=== PATIENT | male | born 1980 | race Caucasian/White ===

== ENCOUNTER 2025-06-02 00:41 | Emergency (ER) | payer OTHER, SELFPAY ==
[2025-06-02 00:45] VITALS: BP 168/92; PULSE 82; O2SAT 98; BMI 26.3
[2025-06-02 00:53] VITALS: BP 152/79; O2SAT 99
[2025-06-02 01:00] VITALS: BP 142/86; O2SAT 100
[2025-06-02 01:09] LABS: Hematocrit 43.3 % (42.0-54.0); Hemoglobin 14.9 g/dL (14.0-18.0); Immature Granulocytes Abs Auto 0.01 10^3/uL (0.00-0.03); Immature Granulocytes Pct Auto 0.2 % (0.0-0.5); Lymphocytes Absolute Auto 3.0 10^3/uL (1.2-3.8); Mean Corpuscular HGB Conc 34.4 g/dL (29.9-35.2); Mean Corpuscular Hemoglobin 27.9 pg (25.9-34.0); Mean Corpuscular Volume 81.1 fL (80.0-94.0); Platelet Count 193 10^3/uL (150-450); Red Blood Count 5.34 10^6/uL (4.70-6.10); White Blood Count 6.0 10^3/uL (4.0-11.0)
--- NOTE | 2025-06-02 01:17 | ED.GENADUL1 ---
HPI HPI - General Adult General Chief complaint: Abdominal Pain Stated complaint: Abdominal pain Time Seen by Provider: 06/02/25 01:01 Source: patient Mode of arrival: walk-in Limitations: no limitations History of Present Illness HPI narrative: Patient is a 45-year-old male presenting to the emergency department for evaluation of abdominal pain. Patient states that a few hours ago he started experiencing right lower abdominal pain that radiates to his right flank. He states that the pain comes in waves, and is currently subsiding. He states he has a history of prior kidney stones. States he had an ultrasound of his gallbladder in the past which was negative for gallstones. He denies any associated nausea or vomiting. He has no dysuria or hematuria. No constipation or diarrhea. No chest pain or shortness of breath. No fevers or chills. Denies history of intra-abdominal surgeries. He is otherwise healthy with no chronic medical conditions. Related Data Allergies Allergy/AdvReac Type Severity Reaction Status Date / Time No Known Drug Allergies Allergy Verified 06/02/25 00:45 Opioid HPI Opioid Management Most Recent Opioid Data: Last Pain Scale 7 Today, 01:20 Last AUG Pain Assessment Today, 01:20 Review of Systems ROS Status of ROS 10 or more systems reviewed and unremarkable except as noted in history and below PFSH PFSH Social History Little interest or pleasure in doing things: not at all Feeling down, depressed, or hopeless: not at all Exam Narrative Exam Narrative: CONSTITUTIONAL: Well-appearing, answering questions and following commands appropriately SKIN: Was warm and dry. EYES: Sclerae white. EARS, NOSE, THROAT: Moist oral mucosa. RESPIRATORY: Clear to auscultation bilaterally, no wheezes, crackles, or stridor, no use of accessory muscles CARDIOVASCULAR: Normal rate and regular rhythm. There is no S3, S4, murmur, rub. GASTROINTESTINAL: Abdomen soft, nontender, nondistended. No right upper quadrant tenderness. No rebound tenderness or guarding. MUSCULOSKELETAL: No peripheral edema. NEUROLOGIC: Patient is awake and alert. Facies were symmetrical. Constitutional Vital Signs, click to edit/add: Last Vital Signs Pulse 82 06/02/25 00:45 Resp 19 06/02/25 00:45 BP 142/86 H 06/02/25 01:00 Pulse Ox 100 06/02/25 01:00 O2 Del Method Room Air 06/02/25 00:45 Course Vital Signs Vital signs: Vital Signs Pulse Rate 82 06/02/25 00:45 Respiratory Rate 19 06/02/25 00:45 Blood Pressure 168/92 H 06/02/25 00:45 Pulse Oximetry 98 06/02/25 00:45 Oxygen Delivery Method Room Air 06/02/25 00:45 Pulse Rate 82 06/02/25 00:45 Respiratory Rate 19 06/02/25 00:45 Blood Pressure 142/86 H 06/02/25 01:00 Pulse Oximetry 100 06/02/25 01:00 Oxygen Delivery Method Room Air 06/02/25 00:45 Medical Decision Making MDM Narrative Medical decision making narrative: My clinical impression is that the patient's symptoms are secondary to nephrolithiasis. Though this pain is in the right lower quadrant, he has no tenderness to palpation to suggest appendicitis. No urinary symptoms to suggest cystitis/pyelonephritis. IV was established and laboratory studies were obtained. CT abdomen/pelvis was ordered. He was given IV ketorolac for pain. Laboratory studies were unremarkable. No significant electrolyte or metabolic derangement. No evidence of acute kidney injury. No anemia, leukocytosis, or thrombocytopenia. No transaminitis or hyperbilirubinemia. Lipase not elevated. Urinalysis positive for hematuria, no acute infection. CT abdomen/pelvis independently reviewed and interpreted by myself demonstrated right 4 mm nonobstructing distal ureteral lithiasis near the UVJ. I do believe the patient is stable for discharge. Patient has no evidence of infection, sepsis, or obstructive uropathy. His pain is under control and is tolerating p.o. They were instructed to follow up with PCP for further care. Return precautions were given including any new or worsening symptoms. Patient understands and agrees to the plan. FINAL IMPRESSION: #Acute right-sided ureterolithiasis DISPOSITION: Discharged home CONDITION: Good Lab Data Lab results reviewed: Yes I reviewed the patient's lab results Labs: Lab Results 06/02/25 06/02/25 Range/Units 01:00 01:25 WBC 6.0 (4.0-11.0) 10^3/uL RBC 5.34 (4.70-6.10) 10^6/uL Hgb 14.9 (14.0-18.0) g/dL Hct 43.3 (42.0-54.0) % MCV 81.1 (80.0-94.0) fL MCH 27.9 (25.9-34.0) pg MCHC 34.4 (29.9-35.2) g/dL RDW 13.0 (11.0-15.0) % Plt Count 193 (150-450) 10^3/uL MPV 8.4 L (9.5-13.5) fL Neut % (Auto) 41.5 L (43.0-75.0) % Lymph % (Auto) 49.9 (20.5-60.0) % [place] % (Auto) 5.9 (1.7-12.0) % Eos % (Auto) 2.0 (0.9-7.0) % Baso % (Auto) 0.5 (0.2-2.0) % Neut # (Auto) 2.5 (1.4-6.5) 10^3/uL Lymph # (Auto) 3.0 (1.2-3.8) 10^3/uL [place] # (Auto) 0.4 (0.3-0.8) 10^3/uL Eos # (Auto) 0.1 (0.0-0.7) 10^3/uL Baso # (Auto) 0.0 (0.0-0.1) 10^3/uL Abs Immat Gran (auto) 0.01 (0.00-0.03) 10^3/uL Imm/Tot Granulo (auto) 0.2 (0.0-0.5) % Sodium 146 H (136-145) mmol/L Potassium 3.6 (3.5-5.1) mmol/L Chloride 108 H (98-107) mmol/L Carbon Dioxide 30.3 (21.0-32.0) mmol/L Anion Gap 11.3 BUN 19.0 H (7.0-18.0) mg/dL Creatinine 1.24 (0.70-1.30) mg/dL Est GFR ( Amer) >60 (>=60 mL/min/1.73m^2) Est GFR (Non-Af Amer) >60 (>=60 mL/min/1.73m^2) BUN/Creatinine Ratio 15.3 Glucose 109 H (74-106) mg/dL Calcium 8.4 L (8.5-10.1) mg/dL Total Bilirubin 0.3 (0.2-1.0) mg/dL AST 30 (15-37) U/L ALT 60 (16-63) U/L Alkaline Phosphatase 88 (46-116) U/L Total Protein 7.0 (6.4-8.2) g/dL Albumin 3.7 (3.4-5.0) g/dL Globulin 3.3 g/dL Albumin/Globulin Ratio 1.1 Lipase 57.0 (16.0-77.0) U/L Urine Color Yellow (YELLOW) Urine Clarity Clear (CLEAR) Urine pH 6.5 (5.0-9.0) Ur Specific [place] 1.020 (1.005-1.025) Urine Protein Negative (NEG/TRACE) mg/dL Urine Glucose (UA) Negative (NEGATIVE) mg/dL Urine Ketones Negative (NEGATIVE) mg/dL Urine Occult Blood Large A (NEGATIVE) Urine Nitrite Negative (NEGATIVE) Urine Bilirubin Negative (NEGATIVE) Urine Urobilinogen 1.0 (0.2-1.0) EU/dL Ur Leukocyte Esterase Negative (NEGATIVE) Urine RBC 50-75 A (0-2) #/HPF Urine WBC None seen (NONE SEEN) #/HPF Ur Squamous Epith Cells None seen (NONE/RARE) #/LPF Urine Crystals None seen (None Seen) #/HPF Urine Bacteria None seen (NONE SEEN) #/HPF Urine Casts None seen (NONE SEEN) #/LPF Urine Mucus None seen (NONE SEEN) Ur Culture Indicated? No Imaging Data CT scan - abdomen: Attestation: I personally reviewed and interpreted this imaging study as follows: Discharge Plan Discharge Chief Complaint: Abdominal Pain Clinical Impression: Kidney stone on right side Patient Disposition: Home, Self-Care Time of Disposition Decision: 01:48 Condition: Good Mode of Transportation: Private Vehicle Print Language: Maori Instructions: Kidney Stones (ED) Referrals: JESSICA DAWN [Primary Care Provider, Internal Medicine] - 1 week
[2025-06-02] MEDS: KETOROLAC TROMETHAMINE 30 MG/ML VIAL IVP (01:20)
[2025-06-02 01:25] LABS: Alanine Aminotransferase 60 U/L (16-63); Albumin Globulin Ratio 1.1; Albumin Level 3.7 g/dL (3.4-5.0); Alkaline Phosphatase 88 U/L (46-116); Anion Gap 11.3; Aspartate Amino Transferase 30 U/L (15-37); Blood Urea Nitrogen 19.0 mg/dL (7.0-18.0); Calcium 8.4 mg/dL (8.5-10.1); Carbon Dioxide 30.3 mmol/L (21.0-32.0); Chloride 108 mmol/L (98-107); Estimated GFR (African America >60 (>=60 mL/min/1.73m^2); Estimated GFR (Non-African Ame >60 (>=60 mL/min/1.73m^2); Globulin 3.3 g/dL; Glucose 109 mg/dL (74-106); Lipase 57.0 U/L (16.0-77.0); Potassium 3.6 mmol/L (3.5-5.1); Sodium 146 mmol/L (136-145); Total Protein 7.0 g/dL (6.4-8.2)
[2025-06-02 01:31] LABS: Glucose Urine UA NEGATIVE (NEGATIVE)
--- OUTSIDE RECORDS SUMMARY | 2025-06-02 01:31 | XMS_ITS | Clinical Summary ---
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 Role Phone Prashanth Winter MD Primary Care Provider [phone] Allergies Active AllergyReactionsCriticalityNoted DyrqRvtasgjbAcrznevLuqorrbn67/23/2024 Medications MedicationSigDispense QuantityRefillsLast FilledStart DateEnd DateStatus Multiple Vitamin (MULTIVITAMIN ADULT PO) Take 1 tablet by mouth Daily09/23/2023ctive loratadine (Claritin) 10 MG tablet Take 10 mg by mouth DailyActive Active Problems ProblemNoted DateDiagnosed DateElevated LDL cholesterol level12/25/2023enal calculus, right12/05/2022bnormal vkexfddqzg72/04/2023Seasonal allergies 12/04/2022 Resolved Problems ProblemNoted DateDiagnosed DateResolved StkdYbnwaxotg37 Immunizations ImmunizationAdministration DatesNext DueHep A, Adult10/30/2018Influenza, injectable, quadrivalent, preservative free05/09/2020,03/20/2018,04/07/2017, 03/12/2015Tdap01/14/2017 Family History Medical HistoryRelationNameCommentsCancerMaternal GrandmotherMary Ethel SenAlex Known ProblemsMotherRelationNameStatusCommentsMaternal GrandmotherMary Ethel SennishMotherAlive Social History Tobacco UseTypesPacks/DayYears UsedDateSmoking Tobacco: NeverSmokeless Tobacco: Never Comments:Never used Alcohol UseStandard Drinks/WeekCommentsYes4 (1 standard drink = 0.6 oz pure alcohol)2-4 times a month.B1300 Health LiteracyAnswerDate RecordedHow often do you need to have someone help you when you read instructions, pamphlets, or other written material from your doctor or pharmacy?Never05/10/2024Humiliation, Afraid, Rape, and Kick questionnaireAnswerDate RecordedWithin the last year, have you been afraid of your partner or ex-partner?No02/06/2023Within the last year, have you been humiliated or emotionally abused in other ways by your partner or ex-partner?No02/06/2023Within the last year, have you been kicked, hit, slapped, or otherwise physically hurt by your partner or ex-partner?No 02/06/2023Within the last year, have you been raped or forced to have any kind of sexual activity by your partner or ex-partner?No02/06/2023Social Connection and Isolation PanelAnswerDate RecordedIn a typical week, how many times do you talk on the phone with family, friends, or neighbors?Three times a week 05/10/2024How often do you get together with friends or relatives?Once a week 05/10/2024How often do you attend anglican or mosque services?More than 4 times per year05/10/2024o you belong to any clubs or organizations such as anglican groups, unions, fraternal or athletic groups, or school groups?Yes05/10/2024How often do you attend meetings of the clubs or organizations you belong to?1 to 4 times per year05/10/2024re you , , , , never , or living with a partner?Hzseliv3705/10/2024UDIT-CAnswerDate RecordedQ1: How often do you have a drink containing alcohol?2-4 times a month05/10/2024Q2: How many drinks containing alcohol do you have on a typical day when you are drinking?1 or Q3: How often do you have six or more drinks on one occasion?Less than wfobosz4705/10/2024Overall Financial Resource Strain (CARDIA) AnswerDate RecordedHow hard is it for you to pay for the very basics like food, housing, medical care, and heating?Not very hard05/10/2024HQ-2AnswerDate RecordedPatient Health Questionnaire-2 Ucfsf542Finmountain west medical center [place] of Occupational Health - Occupational Stress QuestionnaireAnswerDate RecordedDo you feel stress - tense, restless, nervous, or anxious, or unable to sleep at night because yourmind is troubled all the time - these days?Not at all05/10/2024 Exercise Vital SignAnswerDate RecordedOn average, how many days per week do you engage in moderate to strenuous exercise (like a brisk walk)?6 days05/10/2024On average, how many minutes do you engage in exercise at this level?50 min 05/10/2024Hunger Vital SignAnswerDate RecordedWithin the past 12 months, you worried that your food would run out before you got the money to buymore.Never true05/10/2024Within the past 12 months, the food you bought just didn't last and you didn't have money to get more.Never true05/10/2024RAPARE - TransportationAnswerDate RecordedIn the past 12 months, has lack of transportation kept you from medical appointments or from getting medications?No 05/10/2024In the past 12 months, has lack of transportation kept you from meetings, work, or from getting things needed for daily living?No05/10/2024 Housing Stability Vital SignAnswerDate RecordedIn the last 12 months, was there a time when you were not able to pay the mortgage or rent on time?No02/06/2023In the last 12 months, how many places have you lived?In the last 12 months, was there a time when you did not have a steady place to sleep or slept in ashelter (including now)?No02/06/2023Housing Stability Vital SignAnswerDate RecordedIn the last 12 months, was there a time when you were not able to pay the mortgage or rent on time?No05/10/2024In the past 12 months, how many times have you moved where you were living?t any time in the past 12 months, were you homeless or living in a custodial (including now)?No05/10/2024Sex and Gender InformationValueDate RecordedSex Assigned at UgestSfyr55/05/2024 5:20 PM EDTLegal QwuWoqf8609/14/2022 7:20 PM EDTGender YllitwyeKlca28/05/2024 5:20 PM EDTSexual XrnncpmsgawFbmdnfss50/05/2024 5:20 PM EDT Last Filed Vital Signs Vital SignReadingTime TakenCommentsBlood Rzecugao592/8408/13/2024 2:34 PM EST Gxrnd2334/11/2025 2:34 PM NRZLydilcgugmk60.3 ??C (97.3 ??F)08/13/2024 2:34 PM ESTRespiratory Tlpm948608/13/2024 2:34 PM ESTOxygen Ciktttuqlq02%08/13/2024 2:34 PM ESTInhaled Oxygen Concentration--Ynhdqx96 kg (211 lb 9.6 oz)08/13/2024 2:34 PM OIDHznrjm348 cm (6' 2 )08/13/2024 2:34 PM ESTBody Mass Index27.17008/13/2024 2:34 PM EST Plan of Treatment Health MaintenanceDue DateLast DoneCommentsCT Mhouapthhslg1979Colonoscopy 1979FIT1979FOBT1979 6918Stpxclwplgqok1979COVID-19 Vaccine ( season)/, 11/27/2020Influenza Vaccine (#1) /01/2020, 03/20/2018, 04/07/2017, Additional history exists Colorectal Cancer Mmosebgfs71/12/2028FIT-DNAPneumococcal Vaccine: Pediatrics (0 to 5 Years) and At-Risk Patients (6 to 64 Years)Aged Out No longer eligible based on patient's age to complete this topic Procedures Procedure NamePriorityDate/TimeAssociated DiagnosisCommentsLAB COLOGUARD?? COLON CANCER GOTGVBYkxvhbr36/12/2025 9:45 AM EST Screening for malignant neoplasm of colon from Last 3 Months or Most Recently Relevant to Health Maintenance Results * Cologuard?? colon cancer screening (07/14/2024 9:45 AM EST)ComponentValueRef RangeTest MethodAnalysis TimePerformed AtPathologist SignatureNONINV COLON CA DNA+OCC BLD SCRN STL-NEWCgjubbhrKdgwxmye84/18/2025 10:50 AM [facility] (CLIA #:[id number])Comment: NEGATIVE TEST RESULT. A negative Cologuard result indicates a low likelihood that a colorectal cancer (CRC) or advanced adenoma (adenomatous polyps with more advanced pre-malignant features) ??is present. The chance that a person with a negative Cologuard test has a colorectal cancer is less than 1in 1500 (negative predictive value >99.9%) or has an advanced adenoma is less than 5.3% (negative predictive value 94.7%). These data are based on a prospective cross-sectional study of 10,000individuals at average risk for colorectal cancer who were screened with both Cologuard and colonoscopy. (Andrey Rodney al, N Engl J Med 2014;370(14):7288-9199) The normal value (reference range) for this assay is negative. COLOGUARD RE-SCREENING RECOMMENDATION: Periodic colorectal cancer screening is an important part ofpreventive healthcare for asymptomatic individuals at average risk for colorectal cancer. ??Following a negative Cologuard result, the [place] [employer] and U.S. Multi-Society Task Force screening guidelines recommend a Cologuard re-screening interval of 3 years. References: [place] [employer] Guideline for Colorectal Cancer Screening: https://www.cancer.or g/cancer/hsnwt-pjxrht-baqdpl/sglzskvyd-cbriputmo-inmmjuz/acs-recommendations.htm aleyda; Howie PATEL, Blaine JACOBS, Ghassan GallegosK, Colorectal Cancer Screening: Recommendations for Physicians and Patients from the U.S. Multi-Society Task Force on Colorectal Cancer Screening , Am J Gastroenterology 2017; 112:1950-1582. TEST DESCRIPTION: Composite algorithmic analysis of stool DNA-biomarkers with hemoglobin immunoassay. ?? Quantitative values of individual biomarkers are not reportable and are not associated with individual biomarker result reference ranges. Cologuard is intended for colorectal cancer screening ofadults of either sex, 45 years or older, who are at average-risk for colorectal cancer (CRC). Cologuard has been approved for use by the U.S. FDA. The performance of Cologuard was established in a cross sectional study of average-risk adults aged 50-84. Cologuard performance in patients ages 45 to 49 years was estimated by sub-group analysis of near-age groups. Colonoscopies performed for a positive result may find as the most clinically significant lesion: colorectal cancer [4.0%], advanced adenoma (including sessile serrated polyps greater than or equal to 1cm diameter) [20%] or non- advanced adenoma [31%]; or no colorectal neoplasia [45%]. These estimates are derived from a prospective cross-sectional screening study of 10,000 individuals at average risk for colorectal cancer who were screened with both Cologuard and colonoscopy. (Andrey Rodney al, N Engl J Med 2014;370(14):6094-5984.) Cologuard may produce a false negative or false positive result (no colorectal cancer or precancerous polyp present at colonoscopy follow up). A negative Cologuard test result does not guarantee the absence of CRC or advanced adenoma (pre-cancer). The current Cologuard screening interval is every 3 years. ([place] [employer] and U.S. Multi-Society Task Force). Cologuard performance data in a 10,000 patient pivotal study using colonoscopy as the reference method can be accessed at the following location: www.TwoChop.ProBueno/results. Additional description of the Cologuard test process, warnings and precautions can be found at www.[employer]oo[employer] Grouprd.com. Specimen (Source)Anatomical Location / LateralityCollection Method / Volume Collection TimeReceived TimeStool specimen (specimen)07/14/2024 9:45 AM EST 07/16/2024 11:01 AM EST Narrative Authorizing ProviderResult TypeResult StatusCony [facility] ORDERABLESFinal ResultPerforming OrganizationAddressCity/State/ZIP CodePhone Number [facility] (CLIA #:[id number]) [place] [address] [address], from Last 3 Months or Most Recently Relevant to Health Maintenance Insurance Care Teams Team MemberRelationshipSpecialtyStart DateEnd Date Prashanth Winter MD [address] [facility] [address] [place] [address] PCP - GeneralInternal Medicine11/17/22
[2025-06-02 01:37] LABS: Cast Seen? NONE SEEN #/LPF (NONE SEEN); Crystals Seen? None Seen #/HPF (None Seen); Urine Culture Indicated NO
[2025-06-02 01:56] VITALS: BP 144/83; PULSE 61; O2SAT 98
--- NOTE | 2025-06-02 02:00 | PC.NURSE ---
i gave this patient verbal and written discharge orders, this patient voices yes to understanding these. at time of discharge this patient voices no concerns, needs and shows no signs of distress
== END 2025-06-02 02:00 | disposition home or self-care (01) ==
PROVIDERS: Emergency Provider Student in an Organized Health Care Education/Training Program; Family Provider Internal Medicine; PCP Internal Medicine
DX: N20.0 Calculus of kidney (principal)
CPT/HCPCS: 36415; 74176; 80053; 81001; 83690; 85025; 96374; 99284; J1885